=== PATIENT | female | born 1960 | race Caucasian/White ===

== ENCOUNTER → 2017-10-31 07:18 | Outpatient (CLI) | payer BC, SELFPAY ==
--- NOTE | 2017-10-31 06:47 | HPBI_ITS ---
MAMMOGRAPHY - BILATERAL SCREENING REASON FOR EXAM: Female, 57 years old. Routine annual screening examination. PERTINENT HISTORY: Non-contributory. TECHNIQUE: Digital bilateral breast lore (3D mammographic acquisition) in the CC and MLO projections. 2-D mediolateral oblique (MLO) and craniocaudad (CC) views of both breasts were obtained. CAD: Full Field Digital Mammography with Computer Added Detection was performed. COMPARISON: Comparison is made with prior ocular examination dated October 07, 2015. FINDINGS: Breast Composition: The breasts are heterogeneously dense, which may obscure small masses. There are no dominant masses or suspicious calcifications. No other significant abnormalities are identified. There has been no significant change since the prior study. HPBI/SCREENING MAMM (CAD), BILAT IMPRESSION: Stable bilateral screening mammogram. Yearly follow-up mammogram recommended. (A) ASSESSMENT CATEGORY: BIRADS Category 1: Negative. A letter regarding these results will be sent to the patient by the facility within 30 days. Approximately 10% of breast cancers are not detected by mammography. A normal mammogram should not delay biopsy of a clinically suspicious abnormality. [id number] Electronically Signed: Wilfrid Grove MD at 8:25 EST Tel [phone], Service support ,
[2017-10-31 10:32] LABS: ALB/GLOB Ratio 1.3 RATIO (0.9-2.4); AST(SGOT) 15 U/L (15-37); Alanine Aminotransfer ALT/SGPT 31 U/L (12-78); Alkaline Phosphatase 83 U/L (45-117); Anion Gap 7 (5-15); BUN 14 mg/dL (7-18); BUN/Creat Ratio 16.6 RATIO (10-20); Chloride 105 mmol/L (98-107); Cholesterol 290 mg/dL (200); Creatinine, Serum 0.84 mg/dL (0.55-1.02); EST Glomerular Filtration Rate 74 mL/min (>60); Est Glom Filt Rate - Afr Amer 90 mL/min (>60); Glucose 95 mg/dL (70-110); High Density Lipoprotein 56 mg/dL; Potassium 4.1 mmol/L (3.5-5.1); Sodium Level 139 mmol/L (136-145); Triglycerides 215 mg/dL; Very Low Density Lipoprotein 43 mg/dL (5-40)
== END ==
PROVIDERS: Visit Provider Physician Assistant
DX: Z12.31 Encounter for screening mammogram for malignant neoplasm of breast (principal)
CPT/HCPCS: 36415; 77063; 77067; 80053; 80061; G0202

== ENCOUNTER → 2018-02-14 07:02 | Outpatient (CLI) | payer BC, SELFPAY ==
[2018-02-14 11:06] LABS: ALB/GLOB Ratio 1.2 RATIO (0.9-2.4); AST(SGOT) 20 U/L (15-37); Alanine Aminotransfer ALT/SGPT 48 U/L (13-56); Albumin, Serum 3.8 g/dL (3.2-5.0); Alkaline Phosphatase 90 U/L (45-117); Anion Gap 9 (5-15); BUN 15 mg/dL (7-18); BUN/Creat Ratio 18.4 RATIO (10-20); Chloride 102 mmol/L (98-107); Cholesterol 209 mg/dL (200); Creatinine, Serum 0.82 mg/dL (0.55-1.02); EST Glomerular Filtration Rate 77 mL/min (>60); Est Glom Filt Rate - Afr Amer 93 mL/min (>60); Globulin 3.1 g/dL (2.2-4.2); Glucose 91 mg/dL (74-106); High Density Lipoprotein 56 mg/dL; Potassium 4.1 mmol/L (3.5-5.1); Protein, Total 6.9 g/dL (6.4-8.2); Sodium Level 139 mmol/L (136-145); Triglycerides 154 mg/dL; Very Low Density Lipoprotein 31 mg/dL (5-40)
== END ==
PROVIDERS: Family Provider Physician Assistant; PCP Physician Assistant; Visit Provider Physician Assistant
DX: E78.5 Hyperlipidemia, unspecified (principal)
CPT/HCPCS: 36415; 80053; 80061

== ENCOUNTER → 2019-02-05 13:05 | Outpatient (CLI) | payer BC, SELFPAY ==
[2019-02-05 13:29] LABS: Hematocrit 43.6 % (37-47); Hemoglobin 13.9 g/dl (12.0-15.0); Mean Corp Hgb Conc 31.9 g/gl (32-36); Mean Corpuscular Volume 87.7 fL (81-99); Mean Platelet Vol. 11.1 fl (6.2-12.0); Platelet Count 269 K/mm3 (150-450); RBC Distribution Width CV 13.2 % (11.6-14.6); RBC Distribution Width SD 41.7 fl (35.1-43.9); Red Blood Count 4.97 M/mm3 (4.2-5.4); Scan Indicated on CBC? Y/N NO; White Blood Count 8.7 K/mm3 (4.4-11.0)
[2019-02-05 13:44] LABS: Hemoglobin A1c 5.8 % (4.2-6.3)
[2019-02-05 13:54] LABS: Progesterone Level 0.07 ng/mL (See Comment)
[2019-02-05 13:59] LABS: Follicle Stimulating Hormone 35.3 mIU/mL; Free T3 2.7 pg/mL (2.18-3.98); T4 Free Direct 0.99 ng/dL (0.76-1.46); Thyroid Stim Hormone (TSH) 1.08 uIU/mL (0.358-3.74)
== END ==
PROVIDERS: Family Provider Physician Assistant; PCP Physician Assistant; Referring Provider Obstetrics & Gynecology; Visit Provider Obstetrics & Gynecology
DX: N95.0 Postmenopausal bleeding (principal)
CPT/HCPCS: 36415; 82670; 83001; 83036; 84144; 84403; 84439; 84443; 84481; 85027

== ENCOUNTER → 2019-04-15 16:20 | Outpatient (CLI) | payer BC, SELFPAY ==
[2019-04-15 18:01] LABS: Progesterone Level 0.84 ng/mL (See Comment)
[2019-04-15 18:07] LABS: Estradiol < 11.0 pg/mL
== END ==
PROVIDERS: Visit Provider Obstetrics & Gynecology
DX: N92.6 Irregular menstruation, unspecified (principal)
CPT/HCPCS: 36415; 82670; 84144